=== PATIENT | female | born 1945 | race Caucasian/White ===

== ENCOUNTER 2023-01-30 19:39 | Emergency (ER) | payer MEDICARE, MEDICAID, SELFPAY ==
[2023-01-30 19:40] VITALS: BP 194/104; PULSE 75; RESP 18; TEMP 37.1; O2SAT 99; BMI 23.0
--- NOTE | 2023-01-30 19:44 | USR_ITS ---
PROCEDURE INFORMATION: Exam: US Duplex Left Upper Extremity Veins, Limited Exam date and time: 01/30/2023 8:13 PM Age: 77 years old Clinical indication: Pain; Arm, upper; Left; Additional info: Arm pain TECHNIQUE: Imaging protocol: Real-time duplex ultrasound of the left extremity with 2-D beckford scale, color Doppler flow and spectral waveform analysis including responses to compression and other maneuvers (when performed) with image documentation. Limited exam focused on the left upper extremity veins. COMPARISON: No relevant prior studies available. FINDINGS: Left deep veins: Internal jugular, subclavian, axillary, brachial, radial and ulnar veins patent without thrombus. Normal compressibility, augmentation response and/or Doppler waveforms. Left superficial veins: Visualized cephalic and basilic veins patent without thrombus. Soft tissues: Unremarkable. US/[place] [id number] IMPRESSION: No sonographic evidence of deep vein thrombosis.
--- NOTE | 2023-01-30 19:44 | ECG_ITS ---
[facility] Test Date: 2023-01-30 Pat Name: Qing kelly Department: Room: Gender: Female Metal Pourer: : 1945 Requested By: Delia La Order Number: [id number] Vanessa MD: Capo Mata M.D. Measurements Intervals Beasley Rate: 71 P: 73 NC: 200 QRS: -57 QRSD: 90 T: 46 QT: 412 QTc: 450 Interpretive Statements SINUS RHYTHM PATTERN CONSISTENT WITH PULMONARY DISEASE LEFT ANTERIOR FASCICULAR BLOCK [QRS AXIS <= -45, QR IN I, RS IN II] No previous ECG available for comparison Electronically Signed On 01-30-2023 22:04:57 CDT by Capo Mata M.D. [id number]
--- NOTE | 2023-01-30 19:44 | XRR_ITS ---
PROCEDURE INFORMATION: Exam: XR Chest Exam date and time: 01/30/2023 7:51 PM Age: 77 years old Clinical indication: Pain; Chest pressure; Additional info: Cp TECHNIQUE: Imaging protocol: Radiologic exam of the chest. Views: 1 view. COMPARISON: No relevant prior studies available. FINDINGS: Lungs: Calcified granulomas are seen in the lung apices. The lungs are otherwise clear. Pleural spaces: Unremarkable. No pleural effusion. No pneumothorax. Heart/Mediastinum: Unremarkable. No cardiomegaly. Bones/joints: No acute fracture. XR/XR chest 1V portable [id number] IMPRESSION: No acute cardiopulmonary abnormality.
--- NOTE | 2023-01-30 19:47 | CTR_ITS ---
PROCEDURE INFORMATION: Exam: CT Head Without Contrast Exam date and time: 01/30/2023 8:03 PM Age: 77 years old Clinical indication: Weakness, extremity; Left; Additional info: L side numbness TECHNIQUE: Imaging protocol: Computed tomography of the head without contrast. Radiation optimization: All CT scans at this facility use at least one of these dose optimization techniques: automated exposure control; mA and/or kV adjustment per patient size (includes targeted exams where dose is matched to clinical indication); or iterative reconstruction. REPORTING DATA: Count of CT and Cardiac NM exams in prior 12 months: This patient has received 0 known CTs and 0 known cardiac nuclear medicine studies in the 12 months prior to the current study. COMPARISON: No relevant prior studies available. 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 Mild atrophy and mild white matter chronic microvascular changes are noted. No hemorrhage or evidence of acute infarction. Cerebral ventricles: No ventriculomegaly. Paranasal sinuses: Visualized sinuses are unremarkable. No fluid levels. Mastoid air cells: Visualized mastoid air cells are well aerated. Bones/joints: Unremarkable. No acute fracture. Soft tissues: Unremarkable. CT/CT head wo con* [id number] IMPRESSION: No acute intracranial abnormality.
--- NOTE | 2023-01-30 19:50 | W.ED.EXTPRO ---
HPI - Extremity Problem General: Chief complaint: Extremity Problem,Nontraumatic Stated complaint: CVA Time Seen by Provider: 01/30/23 19:40 Source: patient and EMS Mode of arrival: EMS Limitations: no limitations History of Present Illness: 77-year-old female states she had some pain in her wrist and upper arms in the last night she does have a purpleish red streak going up that arm a little warm to touch. She had a history of 2 strokes in the past she states that she has some increased numbness in that arm but has chronic numbness and weakness in that arm she denies any new focal deficits denies any fever denies any vomiting or diarrhea. Denies any injuries Associated symptoms: Deny chest pain, fever(s) or rash Review of Systems Const: Denies: fever(s) or chills Eyes: Denies: blurry vision or eye discomfort ENMT: Denies: throat pain or dental pain Card: Denies: chest pain Resp: Denies: dyspnea GI: Denies: abdominal pain, nausea, vomiting or diarrhea Musc: Reports: extremity pain; Denies: neck pain or back pain Skin/Breast: Reports: erythema; Denies: rash Neuro: Reports: numbness in extremities; Denies: headache(s) Physical Exam Const: COMMON NORMALS: no acute distress, patient oriented x3 and healthy appearing HENMT: COMMON NORMALS: normocephalic and atraumatic HEAD & SCALP: normocephalic and atraumatic Eye: COMMON NORMALS: Equal, round and reactive pupils present and EOMs intact bilaterally PUPIL: Yes Equal, round and reactive pupils present Neck/C-Spine: COMMON NORMALS: full ROM and supple Chest: COMMONS NORMALS: normal inspection of the chest and normal palpation of entire chest wall Resp: COMMON NORMALS: normal respiratory effort, No retractions, No use of accessory muscles and clear to auscultation bilaterally AUSCULTATION: clear to auscultation bilaterally Cardio: COMMON NORMALS: regular rate, regular rhythm and No murmurs present (Cardio) RATE: regular rate RHYTHM: regular rhythm GI: COMMON NORMALS: Normal to inspection, nondistended, normoactive bowel sounds present, Soft to palpation, non-tender and no masses PALPATION: Yes Soft to palpation Extremity: COMMON NORMALS: full ROM NARRATIVE EXTREMITY EXAM: Some slight red streaking up left arm no tenderness to touch Neuro: COMMON NORMALS: patient oriented x3, moves all extremities and no focal motor deficits OTHER: No focal deficits she has no slurred speech she has no acute weakness has some mild weakness to her left side but it is from her old stroke no increased weakness from her baseline she is ambulatory. Psych: COMMON NORMALS: mental status grossly normal, Normal thought process present and cooperative THOUGHT PROCESS: Normal thought process present Skin: COMMON NORMALS: no rashes or lesions noted and no wounds GENERAL SKIN EXAM: no rashes or lesions noted Course Vital Signs: Vital signs: Vital Signs Temperature 98.7 F 01/30/23 19:40 Pulse Rate 66 01/30/23 21:19 Respiratory Rate 16 01/30/23 21:19 Blood Pressure 147/68 01/30/23 21:19 Pulse Oximetry 100 01/30/23 21:19 Oxygen Delivery Me thod Room Air 01/30/23 19:40 MDM - Extremity (Nontraumatic) Medical Decision Making Patient presents here with erythema to her left arm with some slight streaking likely a mild cellulitis blood work here is normal no fever she has no DVT no sign stroke we will start her on antibiotics she is to follow-up with PCP and return if worsening. Medical Records I reviewed the patient's medical records. Lab Data I reviewed the patient's lab results. 01/30/23 19:25 01/30/23 19:25 Radiology Impressions Chest X-Ray 01/30/23 19:44 IMPRESSION: No acute cardiopulmonary abnormality. Venous Duplex 01/30/23 19:44 IMPRESSION: No sonographic evidence of deep vein thrombosis. Head CT 01/30/23 19:47 IMPRESSION: No acute intracranial abnormality. Laboratory Results WBC 8.2 10^3/uL (4.0-10.0) 01/30/23 19:25 RBC 4.76 10^6/uL (4.1-5.3) 01/30/23 19:25 Hgb 13.9 g/dL (11.5-15.3) 01/30/23 19:25 Hct 42.6 % (37.0-47.0) 01/30/23 19:25 MCV 89.5 fl (81-99) 01/30/23 19:25 MCH 29.2 pg (28.0-34.0) 01/30/23 19:25 MCHC 32.6 g/dL (30.0-36.0) 01/30/23 19:25 RDW 13.3 % (12.1-15.1) 01/30/23 19:25 Plt Count 251 10^3/cmm (130-400) 01/30/23 19:25 MPV 10.5 fL (7.4-10.4) H 01/30/23 19:25 Neut % (Auto) 44.3 % 01/30/23 19:25 Lymph % (Auto) 44.2 % 01/30/23 19:25 Snyder % (Auto) 8.0 % 01/30/23 19:25 Eos % (Auto) 2.6 % 01/30/23 19:25 Baso % (Auto) 0.7 % 01/30/23 19:25 Neut # (Auto) 3.61 10^3/uL (1.8-7.7) 01/30/23 19:25 Lymph # (Auto) 3.6 10^3/uL (0.8-4.8) 01/30/23 19:25 Snyder # (Auto) 0.7 10^3/uL (0.2-0.9) 01/30/23 19:25 Eos # (Auto) 0.2 10^3/uL (0.0-0.8) 01/30/23 19:25 Baso # (Auto) 0.1 10^3/uL (0.0-0.1) 01/30/23 19:25 Nucleated RBC % (auto) 0 % 01/30/23 19:25 Nucleated RBCs # 0.0 /100WBC 01/30/23 19:25 Sodium 140 mmol/L (136-145) 01/30/23 19:25 Potassium 3.7 mmol/L (3.5-5.1) 01/30/23 19:25 Chloride 100 mmol/L (98-107) 01/30/23 19:25 Carbon Dioxide 25 mmol/L (22-29) 01/30/23 19:25 Anion Gap 18.7 (5-19) 01/30/23 19:25 BUN 21 mg/dL (8-23) 01/30/23 19:25 Creatinine 1.0 mg/dL (0.5-0.9) H 01/30/23 19:25 GFR Calculation Not Reportable 01/30/23 19:25 Glucose 94 mg/dL (65-115) 01/30/23 19:25 Calculated Osmolality 293 mOsm/kg (285-295) 01/30/23 19:25 Calcium 9.5 mg/dL (8.5-10.5) 01/30/23 19:25 Total Bilirubin 0.3 mg/dL (0.15-1.2) 01/30/23 19:25 AST 19 U/L (0-32) 01/30/23 19:25 ALT 12 U/L (0-33) 01/30/23 19:25 Alkaline Phosphatase 64 U/L (35-105) 01/30/23 19:25 Troponin T Baseline 8 ng/L (0-10) 01/30/23 19:25 Total Protein 8.1 g/dL (6.6-8.7) 01/30/23 19:25 Albumin 4.8 g/dL (3.5-5.2) 01/30/23 19:25 Globulin 3.3 g/dL (1.3-4.6) 01/30/23 19:25 EKG Data EKG 1: I personally reviewed and interpreted this EKG as follows: EKG interpretation date: 01/30/23 EKG interpretation time: 19:47 Interpretation: nsr hr [address] or t wave abnormalities qrs 90 qtc 439 Discharge Plan Discharge Patient Disposition: Home Clinical Impression: Arm pain, left, Cellulitis Condition: Stable Discharge Orders: Discharge ED (Routine); Ordered 01/30/23 Ordered By: Delia La Discharge Diet: Advance as tolerated Discharge Activity: Resume usual activity Patient Instructions: Cellulitis (ED) Coding Level of Care Code ED Denitrator for Chg Edmundo
[2023-01-30 19:56] LABS: Basophils # 0.1 10^3/uL (0.0-0.1); Basophils % 0.7 %; Eosinophils # 0.2 10^3/uL (0.0-0.8); Eosinophils % 2.6 %; Hematocrit 42.6 % (37.0-47.0); Hemoglobin 13.9 g/dL (11.5-15.3); Lymphocytes # 3.6 10^3/uL (0.8-4.8); Lymphocytes % 44.2 %; Mean Corpuscular HGB Conc 32.6 g/dL (30.0-36.0); Mean Corpuscular Hemoglobin 29.2 pg (28.0-34.0); Mean Corpuscular Volume 89.5 fl (81-99); Mean Platelet Volume 10.5 fL (7.4-10.4); Monocytes # 0.7 10^3/uL (0.2-0.9); Neutrophils # 3.61 10^3/uL (1.8-7.7); Neutrophils % 44.3 %; Nucleated Red Blood Cells % 0 %; Platelet Count 251 10^3/cmm (130-400); Red Blood Count 4.76 10^6/uL (4.1-5.3); Red Cell Distribution Width 13.3 % (12.1-15.1); White Blood Count 8.2 10^3/uL (4.0-10.0)
[2023-01-30 20:29] LABS: Troponin(5th) Baseline 8 ng/L (0-10)
[2023-01-30 20:30] LABS: Alanine Aminotransferase 12 U/L (0-33); Albumin Level 4.8 g/dL (3.5-5.2); Alkaline Phosphatase 64 U/L (35-105); Anion Gap 18.7 (5-19); Aspartate Amino Transferase 19 U/L (0-32); Blood Urea Nitrogen 21 mg/dL (8-23); Calcium 9.5 mg/dL (8.5-10.5); Carbon Dioxide 25 mmol/L (22-29); Chloride 100 mmol/L (98-107); Globulin 3.3 g/dL (1.3-4.6); Glucose 94 mg/dL (65-115); Osmolality Calculated 293 mOsm/kg (285-295); Potassium 3.7 mmol/L (3.5-5.1); Sodium 140 mmol/L (136-145); Total Bilirubin 0.3 mg/dL (0.15-1.2); Total Protein 8.1 g/dL (6.6-8.7)
[2023-01-30] MEDS: cefTRIAXone 1,000 MG in sodium chloride 0.9% (plus) 50 ML 100 MG IV (21:16)
[2023-01-30 21:19] VITALS: BP 147/68; PULSE 66; RESP 16; O2SAT 100
--- NOTE | 2023-02-04 13:04 | DCPLANNER ---
cinema or theatre manager was triggered to call patient due to no primary care physician - patient does not live in the area.
== END 2023-01-30 21:28 | disposition home or self-care (01) ==
PROVIDERS: Emergency Provider Emergency Medicine
DX: L03.114 Cellulitis of left upper limb (principal); M79.602 Pain in left arm
CPT/HCPCS: 70450; 71045; 80053; 84484; 85025; 93005; 93971; 96374; 99285; J0696